=== PATIENT | male | born 1960 | race Caucasian/White ===

== ENCOUNTER 2023-03-10 12:29 | Observation (INO) ==
[2023-03-10] MEDS ORDERED: SODIUM CHLORIDE 0.9% 1,000 ML IV SCH ×2 (13:00→17:00)
--- NOTE | 2023-03-10 13:02 | Emergency Department Note ---
Impression & Plan Syncope and collapse ADMIT ED Provider Note HPI: History obtained from patient. The patient is a 62-year-old gentleman who presents emergency department with chief complaint of a syncopal event. Patient states that he was feeling unwell and somewhat lightheaded when he was sitting down, he excused himself from a meeting on the campus of [facility] and went out to sit in the atrium of the building he was at. Patient states the next thing he remembers is waking up on the floor with several students assisting him. Patient states that one of the students reported to him that he passed out in his chair and hit his head against the railing. On my initial assessment here in the ED the patient is hemodynamically stable, he denies any current focal complaint of pain. Patient states he just feels very weak. Patient does not have any focal deficits on arrival. Patient otherwise appears to be in no acute distress. ROS: - Per HPI Differential Diagnosis: Vasovagal event, arrhythmia to include SVT, atrial fibrillation with RVR, ventricular tachycardia, high degree heart block, Brugada syndrome, amongst other potential pathologies. *Outpatient medications and allergy history reviewed. *Pertinent external medical records reviewed PE: General: Alert HEENT: Normocephalic, trachea midline Eyes: Extraocular eye movement is intact, no scleral erythema Pulmonary: Clear to auscultation bilaterally, no wheezing Cardio: Regular rate and rhythm GI: Abdomen is soft to palpation : No suprapubic tenderness MSK: No evidence of trauma or malformation of the extremities, no edema Skin: No evidence of rash Neuro: Alert, no focal deficits Psychiatric: Cooperative INDEPENDENT INTERPRETATIONS: alarm security or surveillance monitor: (As interpreted by myself): - An order was placed for continuous cardiac monitoring - Patient was noted to be in sinus bradycardia with a rate of 59 EKG: (As interpreted by myself): Rate: 53 Rhythm: Sinus bradycardia Intervals: QRS prolonged at 150 ms, otherwise within normal limits ST changes: No evidence of ST elevation MA Time: 1236 Interventions provided in ED: -IV fluid bolus Medical Decision Making: Shortly after the patient arrived IV was established lab work obtained, patient was placed on satellite project site monitor. Lab work shows no leukocytosis, hemoglobin is normal, platelet count is normal, D-dimer was obtained that is within normal limits, CMP does not show any critical findings, troponin is negative x1, TSH is slightly elevated at 8.5 with free T4 within normal limits, CT imaging of the head does not show any evidence of any acute process. Chest x-ray does not show any acute process. Upon review of the patient's EKG I do not see any acute ischemic changes, however the patient does appear to have right bundle branch block with some type of repolarization abnormality in V1 and V2. I did discuss this EKG with on-call cardiology, Dr. Pierre, and I specifically mention concern for potential Brugada syndrome given some slight ST elevation in V1 transitioning into a T wave inversion. Dr. Pierre did not feel the EKG was consistent with Brugada syndrome but did note that there are repolarization abnormalities and if the patient is still feeling unwell he should be admitted to the hospital for further management and observation. He did recommend that I also speak with electrophysiology, Dr. Pineda, and therefore I did discuss the case also with Dr. Pineda on the phone and he did review the EKG and agreed with Dr. Pierre in regards to repolarization abnormality but did not feel EKG was consistent with Brugada syndrome. I discussed this with the patient and he stated his preference for admission as he stated he feels very weak still. He remains without chest pain or shortness of breath.. I also discussed this with his on the phone and she is updated and aware of all the above findings. Case was discussed with the on-call midlevel provider for [facility], Lila Martínez PA-C, the patient was placed for admission in stable condition to the service of Dr. Palacio. Consultants/Discussions held with other healthcare providers: - Dr. Pierre, Cardiology - Dr. Pineda, Cardiology/EP - Lila Martínez PA-C, Hospitalist service Disposition discussion held by myself with: - Patient and (via phone) Diagnosis: 1. Syncope and collapse 2. Abnormal EKG Disposition: Admission Pierre Celestin, Emergency Medicine Past Med/Surg History Surgical History (Updated 03/10/23 @ 16:21 by Emma Martínez PA-C) Hx of hernia repair Social History Smoking Status: Never smoker Preferred Language: Armenian Feels Safe at Home: Yes Allergies Allergies Allergy/AdvReac Type Severity Reaction Status Date / Time No Known Allergies Allergy Unverified 03/10/23 14:01 Home Meds Home Medications Medication Instructions Recorded Confirmed No Known Home Medications 03/10/23 03/10/23 Results & Data (ED) Vital Signs Vital Signs - 24 hr 03/10/23 12:36 03/10/23 12:42 03/10/23 12:44 Temperature 36.4 C L Temperature Source Temporal Artery Scan Pulse Rate 55 L 58 L Pulse Rate [Right Finger] Pulse Rate from SpO2 Sensor Pulse Rhythm Regular Pulse Strength Normal Respiratory Rate 18 Respiratory Effort / Characteristics Non-Labored Respiratory Depth Normal Respiratory Pattern Regular Blood Pressure 144/81 H Blood Pressure [Left Arm] Blood Pressure Mean 102 Blood Pressure Mean [Left Arm] Blood Pressure Position Lying Pulse Oximetry 100 100 Oxygen Delivery Method Room Air Room Air Sepsis Recent Fever Within 48 Hours No Sepsis New/Unexplained Change in Mental Status No Sepsis Action Taken by Nursing No Action Required 03/10/23 13:00 03/10/23 14:00 03/10/23 14:30 Temperature Temperature Source Pulse Rate 53 L 71 77 Pulse Rate [Right Finger] Pulse Rate from SpO2 Sensor 53 L 71 77 Pulse Rhythm Pulse Strength Respiratory Rate 14 17 13 Respiratory Effort / Characteristics Respiratory Depth Respiratory Pattern Blood Pressure 153/90 H 146/96 H 153/85 H Blood Pressure [Left Arm] Blood Pressure Mean 111 112 107 Blood Pressure Mean [Left Arm] Blood Pressure Position Pulse Oximetry 99 100 100 Oxygen Delivery Method Room Air Room Air Room Air Sepsis Recent Fever Within 48 Hours Sepsis New/Unexplained Change in Mental Status Sepsis Action Taken by Nursing 03/10/23 15:00 03/10/23 16:00 Temperature Temperature Source Pulse Rate 79 Pulse Rate [Right Finger] 89 Pulse Rate from SpO2 Sensor Pulse Rhythm Pulse Strength Respiratory Rate 17 20 Respiratory Effort / Characteristics Non-Labored Spontaneous Respiratory Depth Normal Respiratory Pattern Blood Pressure 153/93 H Blood Pressure [Left Arm] 147/93 H Blood Pressure Mean 113 Blood Pressure Mean [Left Arm] 111 Blood Pressure Position Pulse Oximetry 98 99 Oxygen Delivery Method Room Air Room Air Sepsis Recent Fever Within 48 Hours Sepsis New/Unexplained Change in Mental Status Sepsis Action Taken by Nursing Laboratory Data 03/10/23 12:44 03/10/23 15:25 Lab Results 03/10/23 03/10/23 03/10/23 Range/Units 12:44 12:44 12:55 WBC 6.17 (4.8-10.8) K/ul RBC 4.71 (4.70-6.10) M/uL Hgb 14.3 (14.0-18.0) g/dl POC Hgb 14.6 (14.0-18.0) g/dl Hct 42.0 (42.0-52.0) % POC Hct 43 (42-52) % MCV 89.2 (80.0-100.0) fL MCH 30.4 (25.0-34.0) pg MCHC 34.0 (32.0-36.0) g/dL RDW Std Deviation 41.1 (36.4-46.3) fL RDW Coeff of Brian 12.6 (11.5-14.5) % Plt Count 208 (130-400) K/uL MPV 10.3 (9.4-12.4) fL Immature Gran % (Auto) 0.3 % Neut % (Auto) 74.0 % Lymph % (Auto) 17.8 % Pitt % (Auto) 6.3 % Eos % (Auto) 1.0 % Baso % (Auto) 0.6 % Neut # (Auto) 4.56 (1.40-6.50) K/uL Lymph # (Auto) 1.10 L (1.20-3.40) K/uL Pitt # (Auto) 0.39 (0.11-0.59) K/uL Eos # (Auto) 0.06 (0.00-0.50) K/uL Baso # (Auto) 0.04 (0.00-0.20) K/uL Immature Gran # (Auto) 0.02 (0.01-0.20) K/uL PT 10.9 (9.0-12.0) Seconds INR 1.0 (0.9-1.1) D-Dimer 330 Cancelled (0-500) ug/L FEU POC Sodium 140 (135-144) mmol/L Sodium TNP POC Potassium 4.6 (3.3-5.0) mmol/L Potassium TNP POC Chloride 103 (101-112) mmol/L Chloride 105 (98-107) mmol/L Carbon Dioxide 23 (21-32) mmol/L POC Total CO2 25 (24-31) mmol/L Anion Gap TNP POC Anion Gap 17.0 (16-25) mmol/L POC BUN 12 (7-18) mg/dl BUN 11 (6-23) mg/dl Creatinine 0.85 (0.6-1.4) mg/dl POC Creatinine 0.8 (0.6-1.3) mg/dl Est Cr Clr Drug Dosing 100.5 ml/min Est GFR ( Amer) 107.5 ml/min Est GFR (Non-Af Amer) 92.7 ml/min BUN/Creatinine Ratio 12.9 (10-20) Glucose 133 H (70-99(Fasting)) mg/dl POC Glucose (other) 138 H (70-99) mg/dl Calcium 9.0 (8.6-10.3) mg/dl POC Ioniz Calcium Casandra 1.08 L (1.12-1.32) mmol/l Magnesium TNP Total Bilirubin 0.4 (0.2-1.0) mg/dl AST TNP ALT 26 (7-52) U/L Alkaline Phosphatase 39 (34-104) U/L Troponin I High Sens 2.4 (0-20) pg/ml Total Protein 7.3 (6.0-8.3) gm/dl Albumin 4.6 (3.4-5.0) gm/dl Globulin 2.7 (2.5-4.0) gm/dl Albumin/Globulin Ratio 1.7 (0.9-2) TSH 8.519 H (0.300-4.500) uIu/ml Free T4 TNP 03/10/23 Range/Units 15:25 WBC (4.8-10.8) K/ul RBC (4.70-6.10) M/uL Hgb (14.0-18.0) g/dl POC Hgb (14.0-18.0) g/dl Hct (42.0-52.0) % POC Hct (42-52) % MCV (80.0-100.0) fL MCH (25.0-34.0) pg MCHC (32.0-36.0) g/dL RDW Std Deviation (36.4-46.3) fL RDW Coeff of Brian (11.5-14.5) % Plt Count (130-400) K/uL MPV (9.4-12.4) fL Immature Gran % (Auto) % Neut % (Auto) % Lymph % (Auto) % Pitt % (Auto) % Eos % (Auto) % Baso % (Auto) % Neut # (Auto) (1.40-6.50) K/uL Lymph # (Auto) (1.20-3.40) K/uL Pitt # (Auto) (0.11-0.59) K/uL Eos # (Auto) (0.00-0.50) K/uL Baso # (Auto) (0.00-0.20) K/uL Immature Gran # (Auto) (0.01-0.20) K/uL PT (9.0-12.0) Seconds INR (0.9-1.1) D-Dimer (0-500) ug/L FEU POC Sodium (135-144) mmol/L Sodium 139 POC Potassium (3.3-5.0) mmol/L Potassium 4.4 POC Chloride (101-112) mmol/L Chloride (98-107) mmol/L Carbon Dioxide (21-32) mmol/L POC Total CO2 (24-31) mmol/L Anion Gap POC Anion Gap (16-25) mmol/L POC BUN (7-18) mg/dl BUN (6-23) mg/dl Creatinine (0.6-1.4) mg/dl POC Creatinine (0.6-1.3) mg/dl Est Cr Clr Drug Dosing ml/min Est GFR ( Amer) ml/min Est GFR (Non-Af Amer) ml/min BUN/Creatinine Ratio (10-20) Glucose (70-99(Fasting)) mg/dl POC Glucose (other) (70-99) mg/dl Calcium (8.6-10.3) mg/dl POC Ioniz Calcium Casandra (1.12-1.32) mmol/l Magnesium 2.0 Total Bilirubin (0.2-1.0) mg/dl AST 24 ALT (7-52) U/L Alkaline Phosphatase (34-104) U/L Troponin I High Sens (0-20) pg/ml Total Protein (6.0-8.3) gm/dl Albumin (3.4-5.0) gm/dl Globulin (2.5-4.0) gm/dl Albumin/Globulin Ratio (0.9-2) TSH (0.300-4.500) uIu/ml Free T4 0.97 Administered Medications Discontinued Medications Sodium Chloride (Nss) 1,000 mls @ 999 mls/hr IV .[id number] SHERI Stop: 03/10/23 14:00 Last Infusion: 03/10/23 15:12 Dose: Infused Documented By: Admin: 03/10/23 13:20 Dose: 999 mls/hr Documented By: [place] Imaging Data Radiologist's Impression: Chest X-Ray 03/10/23 12:59 XR chest 1V portable HISTORY: 62 years-old Male syncope acute syncope COMPARISON: None TECHNIQUE: AP view of the chest FINDINGS: Cardiomediastinal and hilar silhouettes are within normal limits. No pneumothorax, pleural effusion or airspace consolidation. The bones appear grossly intact. IMPRESSION: No acute process. ACT 112: Negative or not required by law. The above report was generated using voice recognition software. It may contain grammatical, syntax or spelling errors. Electronically signed by: Brayden cAuña M.D. 03/10/2023 1:[address] 03/10/23 12:[address] DOSE: 625.8 mGy.cm HISTORY: syncope, fell and hit head TECHNIQUE: Multiaxial CT images of the head were performed without the use of intravenous contrast. Automated exposure control was utilized for this study. A dose lowering technique was utilized adhering to the principles of ALARA. Comparison: None. Findings: There is a retention cyst within the left maxillary sinus. The mastoid air cells are clear. The calvarium and skull base are intact. The ventricles and sulci are within normal limits. There is no mass, hematoma, midline shift, or acute infarct. Impression: No acute intracranial abnormality. ACT 112: Negative or not required by law. Electronically signed by: Randall Macdonald M.D. 03/10/2023 2:24 PM Discharge Plan Visit Data Chief Complaint: Syncope ED Provider: Pierre Celestin Discharge Problem: Syncope and collapse Forms Stand Alone Forms: [place] Prescriptions Prescriptions: No Action No Known Home Medications Referrals Referrals: PCP,NO [Primary Care Provider] -
[2023-03-10 13:10] LABS: iSTAT Creatinine 0.8 mg/dl (0.6-1.3); iSTAT Hemoglobin 14.6 g/dl (14.0-18.0); iSTAT Ionized Calcium 1.08 mmol/l (1.12-1.32); iSTAT Potassium 4.6 mmol/L (3.3-5.0)
[2023-03-10 13:25] LABS: Basophils # (auto) 0.04 K/uL (0.00-0.20); Basophils % (auto) 0.6 %; Eosinophils # (auto) 0.06 K/uL (0.00-0.50); Hemoglobin 14.3 g/dl (14.0-18.0); Immature Granulocytes # (auto) 0.02 K/uL (0.01-0.20); Immature Granulocytes % (auto) 0.3 %; Lymphocytes % (auto) 17.8 %; Mean Corpuscular Hemoglobin 30.4 pg (25.0-34.0); Mean Corpuscular Volume 89.2 fL (80.0-100.0); Mean Platelet Volume 10.3 fL (9.4-12.4); Monocytes # (auto) 0.39 K/uL (0.11-0.59); Monocytes % (auto) 6.3 %; Neutrophils # (auto) 4.56 K/uL (1.40-6.50); Platelet Count 208 K/uL (130-400); RDW Coefficient of Variation 12.6 % (11.5-14.5); RDW Standard Deviation 41.1 fL (36.4-46.3); Red Blood Count 4.71 M/uL (4.70-6.10); White Blood Count 6.17 K/ul (4.8-10.8)
--- NOTE | 2023-03-10 13:33 | XRay Report ---
XR chest 1V portable HISTORY: 62 years-old Male syncope acute syncope COMPARISON: None TECHNIQUE: AP view of the chest FINDINGS: Cardiomediastinal and hilar silhouettes are within normal limits. No pneumothorax, pleural effusion o r airspace consolidation. The bones appear grossly intact. IMPRESSION: No acute process. ACT 112: Negative or not required by law. The above report was generated using voice recognition software. It may contain grammatical, syntax o r spelling errors. Electronically signed by: Brayden Acuña M.D. 03/10/2023 1:32 PM
[2023-03-10 13:49] LABS: D Dimer 330 ug/L FEU (0-500); Prothrombin Time 10.9 Seconds (9.0-12.0)
[2023-03-10 14:11] LABS: Alanine Aminotransferase 26 U/L (7-52); Albumin Globulin Ratio 1.7 (0.9-2); Albumin Level 4.6 gm/dl (3.4-5.0); Alkaline Phosphatase 39 U/L (34-104); BUN Creatinine Ratio 12.9 (10-20); Bilirubin,Total 0.4 mg/dl (0.2-1.0); Blood Urea Nitrogen 11 mg/dl (6-23); Carbon Dioxide 23 mmol/L (21-32); Chloride 105 mmol/L (98-107); Creatinine Clr Calc Pharmacy 100.5 ml/min; Est GFR (African American) 107.5 ml/min; Est GFR (Non-African American) 92.7 ml/min; Globulin 2.7 gm/dl (2.5-4.0); Glucose 133 mg/dl (70-99(Fasting)); Thyroid Stimulating Hormone 8.519 uIu/ml (0.300-4.500); Total Protein 7.3 gm/dl (6.0-8.3); Troponin I High Sensitivity 2.4 pg/ml (0-20)
--- NOTE | 2023-03-10 14:26 | CT Scan Report ---
HEAD CT NONCONTRAST CT DOSE: 625.8 mGy.cm HISTORY: syncope, fell and hit head TECHNIQUE: Multiaxial CT images of the head were performed without the use of intravenous contrast. A utomated exposure control was utilized for this study. A dose lowering technique was utilized adheri ng to the principles of ALARA. Comparison: None. Findings: There is a retention cyst within the left maxillary sinus. The mastoid air cells are clear. The calvarium and skull base are intact. The ventricles and sulci are within normal limits. There is no mass, hematoma, midline shift, or acute infarct. Impression: No acute intracranial abnormality. ACT 112: Negative or not required by law. Electronically signed by: Randall Macdonald M.D. 03/10/2023 2:24 PM
--- NOTE | 2023-03-10 15:58 | History & Physical Report ---
Date of Service March 10, 2023 Assessment & Plan (1) Syncope and collapse: (2) Elevated TSH: Plan: - Admit to tele for observation for r/o - Syncopal episode is likely dehydration in the setting of alcohol use increased compared to normal, also pt admits that he avoids salt, uses low to no sodium foods in general. -1 L NSS given, NSS at 100ml/hr x 1 more L - Admits to previous syncopal episodes with illness in the past, last was 3 years ago, saw a funeral director in [facility] but was told he didnt require any further follow up. Echo and ekg were done at that time. He follows with [facility], he will ask his to provide specifics on address/phone number, etc, so that we can obtain/review these records. - Trend cardiac biomarkers, initial set was negative - EKG reviewed as above with concern for V1 and V2 repolarization - unknown if this is acute as there are no other EKGs available for review - Check 2 D echo - Consult cardiology - PT/OT consulted - Pt is not on home medications - TSH noted to be elevated at 8.5, Free T4 is 0.97 - pt has no knowledge of elevation and no hx of hypothyroidism. Admits to worsening fatigue in the apst 2 months but attributed it to house projects. - Advised reducing alcohol consumption at bedside - pt is understanding, denies any hx of dependence or withdrawal - Check am mag, phos, a1c, lipids DVT ppx: teds, scds GI/FEN: Administer 1 more bag of fluids, HH Lines: 2 PIV CODE: FULL Dispo: From home, overnight for observation History of Present Illness Chief Complaint: Syncopal episode Primary Care Provider: NO PCP This is a 62-year-old male with PMHx of hx of EKG changes for the past 3 years. He had seen funeral director saw him once 3 years ago and was not needing to see again. --who presented to the ER after syncopal event which he sustained around 11:30am while he was on [facility] [employer] business meeting. last thing he remembers is waking up on the ground several students assisting him. One person mentioned that he hit his head off the railing near where he was sitting. Pt denies any post ictal symptoms, but does admit to fatigue. He has been tired due to working hard on some house projects and his regularly job for the past 2 months. He denies excessive cold, thinning hair, brittle nails. TSH is noted at 8.5, and has never heard that this was elevated previously. His caffeine use includeds using 6 oz x 6 cups of coffee per day, but states that he drinks half and half --decalf mixed with full caffeine. He did not have time to drink any today as he overslept which is unusual for him. Pt has felt intermittently nauseous all day, and vomited once earlier today. He does admit that he was out with friends for drinks last night, and consumed 3 beers and one mixed drink, but normally has 2 beers daily. He did drink some water today but not a lot due to nausea. He does not take any routine medications. Family Hx: Grandfather (Paternal) - colon cancer at age 56, Grandmother(Paternal) ( of stroke), Uncle of stroke at age 50, Maternal grandparents lived until age 98 and 96 with no major medical issues. Social Hx: Alcohol use: has 2 beers regularly daily, and last evening had 4 drinks total, denies illicit drug use or marijuana use. Exercises regularly, 5 days per week with hiking/walking. He has not exercised in the past 2 days due to traveling. Lives in [facility] with and daughter. 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 Medical: No known medical hx. Surgical Hx: Hernia repair at age 6 Allergies Allergy/AdvReac Type Severity Reaction Status Date / Time No Known Allergies Allergy Unverified 03/10/23 14:01 Home Medications Medication Instructions Recorded Confirmed Type No Known Home Medications 03/10/23 03/10/23 History Past Med/Surg History Surgical History (Updated 03/10/23 @ 16:21 by Emma Martínez PA-C) Hx of hernia repair Social History Smoking Status: Never smoker Preferred Language: Danish Feels Safe at Home: Yes Review of Systems Review of Systems: Constitutional: No fever, sweats or chills Eyes: No diplopia, no worsening or blurred vision ENT: normal hearing, no trouble swallowing Respiratory: No cough, sputum, dyspnea at rest or on exertion Cardiovascular: No chest pain, tightness or palpitations Abdomen: No pain, +nausea, + vomiting, no diarrhea or constipation Musculoskeletal: No joint pain, calf pain, swelling Neurologic: No weakness, numbness/tingling, or balance problems Psychiatric: No anxiety or depression Skin: No rash or itch Physical Exam Physical Exam: General: awake, alert, no apparent distress Head: Normocephalic, atraumatic ENT: PERRL, EOMI, no pharyngeal exudate, mucous membranes moist Chest: Clear to auscultation, on room air, no adventitious breath sounds Cardiac: Regular rate and rhythm, no murmur, no JVD, normal peripheral pulses, good capillary refill Abdominal: NABS x 4 quadrants, soft, nondistended, nontender to palpation, no rebound or guarding Extremities: Normal inspection, no peripheral edema or erythema, calfs nontender to palpation Psych: Normal mood and affect Neuro: AAO x 3, strength intact bilaterally and rated 5/5, no motor deficits, speech is clear, no peripheral sensory deficits Results & Data Results & Data Vital Signs (Past 12 Hours) Vital Signs Temp Pulse Resp BP Pulse Ox O2 Del Method 03/10/23 15:00 79 17 153/93 H 98 Room Air 03/10/23 14:30 77 13 153/85 H 100 Room Air 03/10/23 14:00 71 17 146/96 H 100 Room Air 03/10/23 13:00 53 L 14 153/90 H 99 Room Air 03/10/23 12:44 100 Room Air 03/10/23 12:42 58 L 03/10/23 12:36 36.4 C L 55 L 18 144/81 H 100 Room Air Laboratory Results 03/10/23 03/10/23 03/10/23 15:25 12:55 12:44 WBC RBC Hgb POC Hgb 14.6 Hct POC Hct 43 MCV MCH MCHC RDW Std Deviation RDW Coeff of Brian Plt Count MPV Immature Gran % (Auto) Neut % (Auto) Lymph % (Auto) [place] % (Auto) Eos % (Auto) Baso % (Auto) Neut # (Auto) Lymph # (Auto) [place] # (Auto) Eos # (Auto) Baso # (Auto) Immature Gran # (Auto) PT INR D-Dimer Cancelled POC Sodium 140 Sodium 139 TNP POC Potassium 4.6 Potassium 4.4 TNP POC Chloride 103 Chloride 105 Carbon Dioxide 23 POC Total CO2 25 Anion Gap TNP POC Anion Gap 17.0 POC BUN 12 BUN 11 Creatinine 0.85 POC Creatinine 0.8 Est Cr Clr Drug Dosing 100.5 Est GFR ( Amer) 107.5 Est GFR (Non-Af Amer) 92.7 BUN/Creatinine Ratio 12.9 Glucose 133 H POC Glucose (other) 138 H Calcium 9.0 POC Ioniz Calcium Casandra 1.08 L Magnesium 2.0 TNP Total Bilirubin 0.4 AST 24 TNP ALT 26 Alkaline Phosphatase 39 Troponin I High Sens 2.4 Total Protein 7.3 Albumin 4.6 Globulin 2.7 Albumin/Globulin Ratio 1.7 TSH 8.519 H Free T4 0.97 TNP 03/10/23 12:44 WBC 6.17 RBC 4.71 Hgb 14.3 POC Hgb Hct 42.0 POC Hct MCV 89.2 MCH 30.4 MCHC 34.0 RDW Std Deviation 41.1 RDW Coeff of Brian 12.6 Plt Count 208 MPV 10.3 Immature Gran % (Auto) 0.3 Neut % (Auto) 74.0 Lymph % (Auto) 17.8 [place] % (Auto) 6.3 Eos % (Auto) 1.0 Baso % (Auto) 0.6 Neut # (Auto) 4.56 Lymph # (Auto) 1.10 L [place] # (Auto) 0.39 Eos # (Auto) 0.06 Baso # (Auto) 0.04 Immature Gran # (Auto) 0.02 PT 10.9 INR 1.0 D-Dimer 330 POC Sodium Sodium POC Potassium Potassium POC Chloride Chloride Carbon Dioxide POC Total CO2 Anion Gap POC Anion Gap POC BUN BUN Creatinine POC Creatinine Est Cr Clr Drug Dosing Est GFR ( Amer) Est GFR (Non-Af Amer) BUN/Creatinine Ratio Glucose POC Glucose (other) Calcium POC Ioniz Calcium Casandra Magnesium Total Bilirubin AST ALT Alkaline Phosphatase Troponin I High Sens Total Protein Albumin Globulin Albumin/Globulin Ratio TSH Free T4 Diagnostic Findings Chest X-Ray 03/10/23 12:59 XR chest 1V portable HISTORY: 62 years-old Male syncope acute syncope COMPARISON: None TECHNIQUE: AP view of the chest FINDINGS: Cardiomediastinal and hilar silhouettes are within normal limits. No pneumothorax, pleural effusion or airspace consolidation. The bones appear grossly intact. IMPRESSION: No acute process. ACT 112: Negative or not required by law. The above report was generated using voice recognition software. It may contain grammatical, syntax or spelling errors. Electronically signed by: Brayden Acuña M.D. 03/10/2023 1:[address] 03/10/23 12:[address] DOSE: 625.8 mGy.cm HISTORY: syncope, fell and hit head TECHNIQUE: Multiaxial CT images of the head were performed without the use of intravenous contrast. Automated exposure control was utilized for this study. A dose lowering technique was utilized adhering to the principles of ALARA. Comparison: None. Findings: There is a retention cyst within the left maxillary sinus. The mastoid air cells are clear. The calvarium and skull base are intact. The ventricles and sulci are within normal limits. There is no mass, hematoma, midline shift, or acute infarct. Impression: No acute intracranial abnormality. ACT 112: Negative or not required by law. Electronically signed by: Randall Macdonald M.D. 03/10/2023 2:24 PM ECG Additional Comments: Reviewed personally showing V1 V2 repolarization which was called by the ER physician to Dr. Pierre with cardiology. Discussed and do not think this is Brugada syndrome, but recommended the patient be observed overnight Code Status & VTE Plan Code Status DNR/DNI - discussed with the patient at bedside Supervising Physician Co-Signing Physician Notes Pt seen and examined by me, care coordinated annmarie/ Prosper Martínez PA-C, pls see her note above for further detail. Pt is a 62 yo M w/ hx of EKG changes for the past 3 years. Saw funeral director once 3 years ago and was not needing to see again. Pt now presents to the ER after syncopal event which he sustained around 11:30am while he was on [facility] [employer] meeting. Pt denies any chest pain, reports having nausea prior to syncope. Pt has felt intermittently nauseous all day, and vomited once earlier today. He does admit that he was out with friends for drinks last night, and consumed 3 beers and one mixed drink, but normally has 2 beers daily. He did drink some water today but not a lot due to nausea. He does not take any routine medications. Pt is currently sitting up in bed in [facility]. Overall he is feeling much better. Currently denies any nausea, denies chest pain or shortness of breath. He is awake alert oriented answering appropriately. Lungs are with auscultation. Heart sounds regular. Abdomen soft nontender distended. There is no lower ext remity edema. Patient was extremities spontaneously. Skin is warm and dry. CT head obtained in ED negative. Received IVF. ED provider discussed w/ cardiology. Will admit to telemetry, and will closely monitor. We will obtain echo, orthostatic vital signs, will discuss further with cardiology. Patient reports that his is coming from [facility], to drive him back. MD Hakeem
[2023-03-10 16:01] LABS: Potassium 4.4 mmol/L (3.5-5.1)
--- NOTE | 2023-03-10 16:12 | Electrocardiogram Report ---
Test Reason : Blood Pressure : / mmHG Vent. Rate : 053 BPM Atrial Rate : 053 BPM P-R Int : 196 ms QRS Dur : 150 ms QT Int : 462 ms P-R-T Axes : 073 094 066 degrees QTc Int : 433 ms Sinus bradycardia Rightward axis Right bundle branch block with repolarization abnormality Abnormal ECG No previous ECGs available Confirmed by Will Pierre ([id number]) on 03/10/2023 4:11:33 PM Referred By: Confirmed By:Will Pierre
[2023-03-10 16:20] LABS: T4 Free Thyroxine 0.97 ng/dl (0.61-1.60)
[2023-03-10] MEDS ORDERED: ACETAMINOPHEN 325 MG TAB PO PRN (19:03)
[2023-03-10] MEDS ORDERED: ONDANSETRON INJ 2 MG/ML 2 ML VIAL IV PRN (19:03)
[2023-03-10] MEDS: SODIUM CHLORIDE 0.9% 1,000 ML IV SCH (19:09)
[2023-03-10 19:12] LABS: Troponin I High Sensitivity 3.5 pg/ml (0-20)
[2023-03-10 19:23] LABS: Phosphorus 3.7 mg/dl (2.5-4.9)
[2023-03-10 21:15] LABS: Appearance Urine Clear (Clear); Bilirubin Urine Negative (Negative); Blood Urine Negative (Negative); Color Urine Yellow; Glucose Urine UA Negative (Negative); Ketones Urine Negative (Negative); Leukocyte Esterase Urine Negative (Negative); Nitrite Urine Negative (Negative); Protein Urine Negative (Negative); Specific Gravity Urine 1.013 (1.000-1.030); Urobilinogen Urine Negative (Negative); pH Urine 7.5 (4.5-7.5)
[2023-03-11] MEDS: SODIUM CHLORIDE 0.9% 1,000 ML IV SCH ×2 (05:06→06:14)
[2023-03-11 07:22] LABS: Hematocrit (blood only) 39.1 % (42.0-52.0); Hemoglobin 13.4 g/dl (14.0-18.0); Mean Corpuscular Hemoglobin 30.5 pg (25.0-34.0); Mean Corpuscular Hgb Conc 34.3 g/dL (32.0-36.0); Mean Corpuscular Volume 89.1 fL (80.0-100.0); Mean Platelet Volume 9.8 fL (9.4-12.4); Platelet Count 208 K/uL (130-400); RDW Coefficient of Variation 12.6 % (11.5-14.5); RDW Standard Deviation 41.3 fL (36.4-46.3); Red Blood Count 4.39 M/uL (4.70-6.10); White Blood Count 9.36 K/ul (4.8-10.8)
--- NOTE | 2023-03-11 07:22 | XRay Report ---
KUB HISTORY: Acute generalized abdominal pain abd. pain, nausea, hx of syncope COMPARISON: Chest radiograph of same day FINDINGS: Nonobstructive bowel gas pattern. [id number] fecal retention in the right hemicolon. Renal shadows are mostly obscured by bowel gas. No renal calculi. No ureteral calculi. No pneumoperi toneum or pneumatosis. No fracture. IMPRESSION: Nonobstructive bowel gas pattern. ACT 112: Negative or not required by law. The above report was generated using voice recognition software. It may contain grammatical, syntax o r spelling errors. Electronically signed by: Brayden Acuña M.D. 03/11/2023 7:20 AM
[2023-03-11 07:50] LABS: BUN Creatinine Ratio 13.1 (10-20); Calcium 8.8 mg/dl (8.6-10.3); Chol HDL Ratio 3.3 (0-5); Creatinine Clr Calc Pharmacy 98.4 ml/min; Est GFR (Non-African American) 93.2 ml/min; Phosphorus 2.5 mg/dl (2.5-4.9); Potassium 3.7 mmol/L (3.5-5.1)
[2023-03-11 09:23] LABS: Estimated Average Glucose 117 mg/dl; Hemoglobin A1C 5.7 % (4.5-5.6)
--- NOTE | 2023-03-11 10:58 | Cardiology Consultation ---
Date of Consultation March 11, 2023 Assessment & Plan (1) Syncope and collapse: (2) Right bundle branch block (RBBB) on electrocardiogram (ECG): Plan 62-year-old male admitted after acute syncopal event Referred due to concerns regarding EKG on presentation Clinical history classic for vasovagal event. Normal structural heart on echocardiogram. Normal troponin, no arrhythmias on telemetry EKG with right bundle branch block without evolution or change. Prominent R1 with right bundle branch but not in pathologic fashion No prior history of arrhythmias or familial history of arrhythmias or sudden No findings to suggest myocardial ischemia Impression: 1. Acute vasovagal syncope 2. Right bundle branch block Recommendations: If GI complaints and abdominal pain has resolved and patient is ambulatory in room and hallway to be discharged home Copy of echocardiogram and EKG to be provided to patient Follow-up with PCP and cardiology on return to home History of Present Illness Reason for Consultation: Syncope Requesting Physician: Dr. Palacio Attending Physician: Nolan Valentine MD History of Present Illness Patient is a 62-year-old male without significant medical problems but with history of known abnormal EKG with prior evaluation by cardiology approximately 3 years prior. Patient presents now noting having been visiting the [facility] for meeting. Yesterday while sitting in a meeting developed sharp abdominal cramping pain, nausea. He notes he had awakened late had multiple cups of coffee. Pain become uncomfortable and room felt warm and he left leading to sit in the atrium. While sitting there became lightheaded and diaphoretic and had syncopal event. Patient recovered promptly without residual. No seizure activity. No chest pains or shortness of breath Mildly nauseated last night but feels well this morning. Ambulatory in room No arrhythmias on telemetry Patient denies prior history of myocardial infarction angina congestive heart failure TIA or stroke No history of hypertension, diabetes or hyperlipidemia with excellent lipids No history rheumatic fever scarlet fever renal or hepatic disease. Notes had similar near syncopal event with abdominal pain approximately 10 years prior. No history of exertional symptoms dizziness or lightheadedness No familial history of arrhythmias or sudden Excellent work tolerance hikes and walks for exercise No sleep disruption No recent fevers chills or unexplained infections Allergies Allergy/AdvReac Type Severity Reaction Status Date / Time No Known Allergies Allergy Unverified 03/10/23 14:01 Home Medications Medication Instructions Recorded Confirmed Type No Known Home Medications 03/10/23 03/10/23 History Patient History Surgical History Hx of hernia repair Social History Smoking Status: Never smoker Hx Alcohol Use: Yes Alcohol type: beer Hx Substance Use: No Preferred Language: Yi 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: No Beliefs That Will Affect Care: None Current Living Situation: Spouse and Family Other Information That Helps Us Care for You: No Feels Safe at Home: Yes Safety Concerns: Feels Safe At This Time Assistive Devices: Glasses Review of Systems Review of Systems: All systems reviewed & are unremarkable except as noted in HPI & below Physical Exam Constitutional: WD/WN, vitals as above + thin; no acute distress Eyes: PERRL, conjunctivae normal, anicteric sclerae ENMT: external ear and nose normal, oropharynx normal Neck: trachea midline, no thyromegaly Respiratory: normal respiratory effort, lungs clear to auscultation Cardiovascular: Rate/Rhythm: regular rate and regular rhythm Heart Sounds: normal S1 and normal S2; no gallop and no murmur Palpation: normal PMI Vessels: normal carotid upstroke and radial pulses present; no JVD and no carotid bruit Extremities: no edema Gastrointestinal (Abdomen): normal bowel sounds, soft, nontender, no hepatosplenomegaly Musculoskeletal: no cyanosis or clubbing, extremities motor strength 5/5 Skin: no rashes, warm and dry Neurologic: PERRL, EOMI, accommodation nl, no face palsy, no dysarthria Psychiatric: A+Ox3, euthymic affect Results & Data Vital Signs (Past 12 Hours) Vital Signs Temp Pulse Pulse Resp BP Pulse Ox Pulse Ox 03/11/23 08:00 98 03/11/23 07:48 36.7 C 18 97 03/11/23 07:00 70 03/11/23 04:04 36.9 C 73 18 134/74 97 03/10/23 23:04 36.7 C 76 18 137/74 95 O2 Del Method O2 Del Method 03/11/23 08:00 Room Air 03/11/23 07:48 Room Air 03/11/23 07:00 03/11/23 04:04 Room Air 03/10/23 23:04 Room Air Laboratory Results Laboratory Results - last 24 hr 03/10/23 03/10/23 03/10/23 12:44 12:44 12:55 WBC 6.17 RBC 4.71 Hgb 14.3 POC Hgb 14.6 Hct 42.0 POC Hct 43 MCV 89.2 MCH 30.4 MCHC 34.0 RDW Std Deviation 41.1 RDW Coeff of Brian 12.6 Plt Count 208 MPV 10.3 Immature Gran % (Auto) 0.3 Neut % (Auto) 74.0 Lymph % (Auto) 17.8 [place] % (Auto) 6.3 Eos % (Auto) 1.0 Baso % (Auto) 0.6 Neut # (Auto) 4.56 Lymph # (Auto) 1.10 L [place] # (Auto) 0.39 Eos # (Auto) 0.06 Baso # (Auto) 0.04 Immature Gran # (Auto) 0.02 PT 10.9 INR 1.0 D-Dimer 330 Cancelled POC Sodium 140 Sodium TNP POC Potassium 4.6 Potassium TNP POC Chloride 103 Chloride 105 Carbon Dioxide 23 POC Total CO2 25 Anion Gap TNP POC Anion Gap 17.0 POC BUN 12 BUN 11 Creatinine 0.85 POC Creatinine 0.8 Est Cr Clr Drug Dosing 100.5 Est GFR ( Amer) 107.5 Est GFR (Non-Af Amer) 92.7 BUN/Creatinine Ratio 12.9 Glucose 133 H POC Glucose (other) 138 H Estimat Average Glucose Hemoglobin A1c Calcium 9.0 POC Ioniz Calcium Casandra 1.08 L Phosphorus Magnesium TNP Total Bilirubin 0.4 AST TNP ALT 26 Alkaline Phosphatase 39 Troponin I High Sens 2.4 Total Protein 7.3 Albumin 4.6 Globulin 2.7 Albumin/Globulin Ratio 1.7 Triglycerides Cholesterol LDL Cholesterol, Calc VLDL Cholesterol, Calc HDL Cholesterol Cholesterol/HDL Ratio TSH 8.519 H Free T4 TNP Urine Color Urine Appearance Urine pH Ur Specific [place] Urine Protein Urine Glucose (UA) Urine Ketones Urine Blood Urine Nitrite Urine Bilirubin Urine Urobilinogen Ur Leukocyte Esterase 03/10/23 03/10/23 03/10/23 15:25 18:34 21:00 WBC RBC Hgb POC Hgb Hct POC Hct MCV MCH MCHC RDW Std Deviation RDW Coeff of Brian Plt Count MPV Immature Gran % (Auto) Neut % (Auto) Lymph % (Auto) [place] % (Auto) Eos % (Auto) Baso % (Auto) Neut # (Auto) Lymph # (Auto) [place] # (Auto) Eos # (Auto) Baso # (Auto) Immature Gran # (Auto) PT INR D-Dimer POC Sodium Sodium 139 POC Potassium Potassium 4.4 POC Chloride Chloride Carbon Dioxide POC Total CO2 Anion Gap POC Anion Gap POC BUN BUN Creatinine POC Creatinine Est Cr Clr Drug Dosing Est GFR ( Amer) Est GFR (Non-Af Amer) BUN/Creatinine Ratio Glucose POC Glucose (other) Estimat Average Glucose Hemoglobin A1c Calcium POC Ioniz Calcium Casandra Phosphorus 3.7 Magnesium 2.0 Total Bilirubin AST 24 ALT Alkaline Phosphatase Troponin I High Sens 3.5 Total Protein Albumin Globulin Albumin/Globulin Ratio Triglycerides Cholesterol LDL Cholesterol, Calc VLDL Cholesterol, Calc HDL Cholesterol Cholesterol/HDL Ratio TSH Free T4 0.97 Urine Color Yellow Urine Appearance Clear Urine pH 7.5 Ur Specific [place] 1.013 Urine Protein Negative Urine Glucose (UA) Negative Urine Ketones Negative Urine Blood Negative Urine Nitrite Negative Urine Bilirubin Negative Urine Urobilinogen Negative Ur Leukocyte Esterase Negative 03/11/23 03/11/23 00:29 06:20 WBC 9.36 RBC 4.39 L Hgb 13.4 L POC Hgb Hct 39.1 L POC Hct MCV 89.1 MCH 30.5 MCHC 34.3 RDW Std Deviation 41.3 RDW Coeff of Brian 12.6 Plt Count 208 MPV 9.8 Immature Gran % (Auto) Neut % (Auto) Lymph % (Auto) [place] % (Auto) Eos % (Auto) Baso % (Auto) Neut # (Auto) Lymph # (Auto) [place] # (Auto) Eos # (Auto) Baso # (Auto) Immature Gran # (Auto) PT INR D-Dimer POC Sodium Sodium 139 POC Potassium Potassium 3.7 POC Chloride Chloride 108 H Carbon Dioxide 26 POC Total CO2 Anion Gap 5 POC Anion Gap POC BUN BUN 11 Creatinine 0.84 POC Creatinine Est Cr Clr Drug Dosing 98.4 Est GFR ( Amer) 108.0 Est GFR (Non-Af Amer) 93.2 BUN/Creatinine Ratio 13.1 Glucose 102 H POC Glucose (other) Estimat Average Glucose 117 Hemoglobin A1c 5.7 H Calcium 8.8 POC Ioniz Calcium Casandra Phosphorus 2.5 D Magnesium 2.0 Total Bilirubin AST ALT Alkaline Phosphatase Troponin I High Sens 3.9 Total Protein Albumin Globulin Albumin/Globulin Ratio Triglycerides 78 Cholesterol 156 LDL Cholesterol, Calc 92 VLDL Cholesterol, Calc 16 HDL Cholesterol 48 Cholesterol/HDL Ratio 3.3 TSH Free T4 Urine Color Urine Appearance Urine pH Ur Specific [place] Urine Protein Urine Glucose (UA) Urine Ketones Urine Blood Urine Nitrite Urine Bilirubin Urine Urobilinogen Ur Leukocyte Esterase Diagnostic Findings Echocardiogram 03/11/2023 Normal left ventricular size thickness and function, no valvular disease, normal right ventricular function EKG on presentation sinus bradycardia with right bundle branch block EKG 03/11/2023: Sinus bradycardia with right bundle branch block, rate 65 bpm Chest x-ray: Narrow mediastinum and cardiac silhouette with normal findings
--- NOTE | 2023-03-11 13:16 | Electrocardiogram Report ---
Test Reason : Blood Pressure : / mmHG Vent. Rate : 065 BPM Atrial Rate : 065 BPM P-R Int : 192 ms QRS Dur : 148 ms QT Int : 424 ms P-R-T Axes : 073 097 065 degrees QTc Int : 440 ms Normal sinus rhythm Right bundle branch block Abnormal ECG When compared with ECG of 10-MAR-2023 18:45, (unconfirmed) QT has shortened Confirmed by Will Pierre ([id number]) on 03/11/2023 1:16:19 PM Referred By: REFERRED SELF Confirmed By:Will Pierre
--- NOTE | 2023-03-11 15:26 | Discharge Summary ---
Date of Service March 11, 2023 Admission HPI Per Admitting Provider This is a 62-year-old male with PMHx of hx of EKG changes for the past 3 years. He had seen terrazzo layer helper saw him once 3 years ago and was not needing to see again. --who presented to the ER after syncopal event which he sustained around 11:30am while he was on [employer] business meeting. last thing he remembers is waking up on the ground several students assisting him. One person mentioned that he hit his head off the railing near where he was sitting. Pt denies any post ictal symptoms, but does admit to fatigue. He has been tired due to working hard on some house projects and his regularly job for the past 2 months. He denies excessive cold, thinning hair, brittle nails. TSH is noted at 8.5, and has never heard that this was elevated previously. His caffeine use includeds using 6 oz x 6 cups of coffee per day, but states that he drinks half and half --decalf mixed with full caffeine. He did not have time to drink any today as he overslept which is unusual for him. Pt has felt inter mittently nauseous all day, and vomited once earlier today. He does admit that he was out with friends for drinks last night, and consumed 3 beers and one mixed drink, but normally has 2 beers daily. He did drink some water today but not a lot due to nausea. He does not take any routine medications. Family Hx: Grandfather (Paternal) - colon cancer at age 56, Gran dmother(Paternal) ( of stroke), Uncle of stroke at age 50, Maternal grandparents lived until age 98 and 96 with no major medical issues. Social Hx: Alcohol use: has 2 beers regularly daily, and last evening had 4 drinks total, denies illicit drug use or marijuana use. Exercises regularly, 5 days per week with hiking/walking. He has not exercised in the past 2 days due to traveling. Lives in [facility] with and daughter. 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 Medical: No known medical hx. Surgical Hx: Hernia repair at age 6 Admission Exam Per Admitting Provider General: awake, alert, no apparent distress Head: Normocephalic, atraumatic ENT: PERRL, EOMI, no pharyngeal exudate, mucous membranes moist Chest: Clear to auscultation, on room air, no adventitious breath sounds Cardiac: Regular rate and rhythm, no murmur, no JVD, normal peripheral pulses, good capillary refill Abdominal: NABS x 4 quadrants, soft, nondistended, nontender to palpation, no rebound or guarding Extremities: Normal inspection, no peripheral edema or erythema, calfs nontender to palpation Psych: Normal mood and affect Neuro: AAO x 3, strength intact bilaterally and rated 5/5, no motor deficits, speech is clear, no peripheral sensory deficits Principal Diagnosis Syncope likely vasovagal RBBB on EKG Discharge Exam Constitutional: WD/WN, vitals as above, NAD, sitting up in bed, pleasant, conversing easily Respiratory: normal respiratory effort, lungs clear to auscultation, no wheeze, rales, rhonchi. Normal insp/exp effort, no accessory muscle use Cardiovascular: RRR, no murmur, no edema Vessels: no JVD or carotid bruit Chest: normal inspection of chest Abdomen: normal bowel sounds, soft, nontender, no hepatosplenomegaly Musculoskeletal: no cyanosis or clubbing, extremities motor strength 5/5 Skin: no rashes, warm and dry normal turgor Neurologic: PERRL, EOMI, accommodation nl, no face palsy, no dysarthria CN's II- XI intact bilaterally and moves all extremities Psychiatric: A+Ox3, euthymic affect Discharge Data Allergies Allergy/AdvReac Type Severity Reaction Status Date / Time No Known Allergies Allergy Unverified 03/10/23 14:01 Consultations 03/10/23 15:30 Consult Cardiology Routine 03/10/23 16:01 ED Decision to Admit Stat 03/10/23 16:39 Consult Cardiology Routine Ordered Studies 03/10/23 12:59 CT head/brain wo con Stat Hospital Course (1) Syncope and collapse: (2) Subclinical hypothyroidism: Plan Patient is a 62-year-old male with no known past medical history presented to the ED with a syncopal episode. Patient had sharp abdominal pain, nausea; became lightheaded and diaphoretic eventually leading up to a syncopal event. On presentation to the ED, EKG showed sinus rhythm with right bundle branch block. Patient was admitted for observation overnight. Cardiology was consulted for comanagement. Echocardiogram was done which showed normal systolic function with no valvular abnormalities. Telemetry did not show any significant finding. The likely cause for the syncope was vasovagal syncope. He was found to have mildly elevated TSH with normal free T4. Patient was asked to follow-up with PCP and repeat TSH in 6 to 8 weeks. Discharge plan discussed with family at bedside. Please note the above document was generated using voice recognition software. It may contain grammatical, syntax or spelling errors. Any formal questions or concerns about the content, text or information contained within the body of this dictation should be directly addressed to the provider for clarification Total Time Total Time Spent Total Time Spent (In Minutes): 45 Total Time Includes: Examination of the Patient, Discharge Planning, Medication Reconciliation, Communication With Other Providers and Other Discharge Plan Discharge Items Patient Disposition: Home - Self-Care Reason For Visit: SNYCOPAL EPISODE Discharge Diagnosis: Syncopal episode likely vasovagal syncope Activity: Resume your previous activity Non-emergency contact: Primary Care Provider Call non-emergency contact if: you have any medication questions Follow-up/Referrals: PCP,NO [Primary Care Provider] - Diet: Regular Addtl Attending Provider Instructions: You were admitted to the hospital due to syncope. The likely cause if vasovagal syncope. Your heart function is within normal limits. Please follow up with your PCP and Pattern Lease Inspector. You might need loop recorder placed to monitor your heart rhythm. Discuss about this with your PCP/Pattern Lease Inspector. Your TSH was slightly elevated to 8, thyroid hormone level is normal. You will need repeat tsh test to be done in 6 to 8 weeks. Pending Studies at Discharge: No Stand-Alone Forms: [facility], Smoking Cessation Medications and DC Order Prescriptions: No Action No Known Home Medications Discharge Orders: Discharge Order (Routine); Ordered 03/11/23 Ordered By: Nolan Valentine Admission Data Admit Date/Time: 03/10/23 16:01 Attending Provider: Nolan Valentine Admtonya Provider: Dylan Palacio Primary Care Provider: PCP,NO Other Providers: Will Pierre; Dylan Palacio; Demetrio Cheng Other Interventions: Discharge Summary Assessment (RN) Last Done: 03/11/23 11:10
--- NOTE | 2023-03-12 12:38 | Electrocardiogram Report ---
Test Reason : Blood Pressure : / mmHG Vent. Rate : 077 BPM Atrial Rate : 077 BPM P-R Int : 186 ms QRS Dur : 152 ms QT Int : 444 ms P-R-T Axes : 077 097 065 degrees QTc Int : 502 ms Normal sinus rhythm Right bundle branch block Abnormal ECG When compared with ECG of 10-MAR-2023 12:36, No significant change Confirmed by Will Pierre ([id number]) on 03/12/2023 12:38:31 PM Referred By: REFERRED SELF Confirmed By:Will Pierre
== END 2023-03-11 11:31 | disposition home or self-care (01) ==
LOC: ED 12:29 → EDINP 12:29 → SUATTDRO 16:01 → 2S 17:46